=== PATIENT | female | born 1990 | race Caucasian/White ===

== ENCOUNTER 2020-08-22 15:46 | Emergency (ER) | payer OTHER, SELFPAY ==
[2020-08-22 16:08] LABS: Urine Blood Negative (Negative); Urine Glucose Negative (Negative); Urine Protein Negative (Negative); Urine Specific Gravity 1.025 (1.005-1.030)
[2020-08-22 16:31] LABS: Urine Specific Gravity/Preg 1.025 (1.005-1.030)
[2020-08-22 17:13] LABS: BUN Blood Urea Nitrogen 7 mg/dL (7-18); Bicarbonate 23 mmol/L (21-32); Glucose Level 83 mg/dL (74-106); HCG, Quantitative 191 mIU/mL (1-3); Potassium 3.7 mmol/L (3.5-5.1); Sodium Level 139 mmol/L (136-145)
[2020-08-22 17:23] LABS: Absolute Lymphocytes (CBC) 2.4 K/uL (0.7-4.9); Basophils % 1.2 % (0-1.3); Lymphocytes % 32.7 % (15.3-44.8); MPV 9.2 fL (7.6-11.3); RBC Red Blood Cell Count 4.63 M/uL (3.86-4.86)
[2020-08-22 17:23] LABS: Urine Bacteria 20-50 /HPF (<20); Urine Mucus HEAVY /HPF (NONE SEEN); Urine RBC NONE SEEN /HPF (NONE SEEN)
--- NOTE | 2020-08-22 17:53 | ER ---
Nurse's Notes [facility] Name: Marlyn Lopez Age: 30 yrs Sex: Female : 1990 Arrival Date: 08/22/2020 Time: 15:49 Bed 17 Private MD: Diagnosis: state;Urinary tract infection, site not specified Presentation: 08/22 15:55 Chief complaint: Patient states: Intermittent sharp/dull LLQ abdominal pain x 2 days, jl7 denies N/V/D, denies urinary symptoms, reports hx of ovarian cyst on left ovary. Coronavirus screen: Client denies travel out of the [place] in the last 14 days. At this time, the client does not indicate any symptoms associated with coronavirus-19. Ebola Screen: No symptoms or risks identified at this time. Initial Sepsis Screen: Does the patient meet any 2 criteria? No. Patient's initial sepsis screen is negative. Does the patient have a suspected source of infection? No. Patient's initial sepsis screen is negative. Risk Assessment: Do you want to hurt yourself or someone else? Patient reports no desire to harm self or others. Onset of symptoms was August 20, 2020. Care prior to arrival: None. 15:55 Method Of Arrival: Ambulatory [facility] 15:55 Acuity: EDGAR 3 jl7 Triage Assessment: 15:58 General: Appears in no apparent distress. uncomfortable, Behavior is calm, cooperative, jl7 appropriate for age. Pain: Complains of pain in left lower quadrant Pain does not radiate. Pain currently is 2 out of 10 on a pain scale. at worst was 5 out of 10 on a pain scale. Quality of pain is described as dull, sharp, Pain began 2-3 days ago. Is intermittent. 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 - Social history:: Smoking status: Patient reports the use of cigarette tobacco products, smokes one-half pack cigarettes per day. Screenin:00 Abuse screen: Denies threats or abuse. Denies injuries from another. Nutritional bp screening: No deficits noted. Tuberculosis screening: No symptoms or risk factors identified. Fall Risk None identified. Assessment: 16:00 General: SEE TRIAGE NOTE. bp 17:00 Reassessment: Patient appears in no apparent distress at this time. No changes from bp previously documented assessment. Patient and/or family updated on plan of care and expected duration. Pain level reassessed. U/S AT B/S. 17:55 Reassessment: PT D/C HOME AMBULATORY, DX WITH STATE AND UTI. bp Vital Signs: 15:55 BP 111 / 70; Pulse 105; Resp 17 S; Temp 98.3(O); Pulse Ox 100% on R/A; Weight 96.62 kg; jl7 Height 5 ft. 6 in. (167.64 cm); Pain 2/10; 17:00 BP 112 / 67; Pulse 83; Resp 16; Pulse Ox 99% ; bp 17:55 BP 118 / 74; Pulse 84; Resp 16; Pulse Ox 100% ; bp 15:55 Body Mass Index 34.38 (96.62 kg, 167.64 cm) jl7 ED Course: 15:49 Patient arrived in ED. ds1 15:50 Millicent Peraza FNP-C is [facility]. kb 15:50 Eddie Huang MD is Attending Physician. kb 15:57 Triage completed. jl7 15:58 Arm band placed on right wrist. jl7 16:00 Patient has correct armband on for positive identification. Bed in low position. Call bp light in reach. Side rails up X2. Adult w/ patient. 16:03 David Stark, RN is Primary Nurse. bp 16:45 Inserted saline lock: 22 gauge in right antecubital area, using aseptic technique. bp Blood collected. 17:55 No provider procedures requiring assistance completed. IV discontinued, intact, bp bleeding controlled, No redness/swelling at site. Pressure dressing applied. 18:25 US Transvaginal Ob In Process Unspecified. EDMS Administered Medications: No medications were administered Outcome: 17:53 Discharge ordered by . kb 17:55 Discharged to home ambulatory, with family. bp 17:55 Condition: stable 17:55 Discharge instructions given to patient, Instructed on discharge instructions, follow up and referral plans. medication usage, Demonstrated understanding of instructions, follow-up care, medications, Prescriptions given X 1. 18:24 Patient left the ED. jp3 Signatures: Dispatcher [employer] EDMillicent Mcneill, PERICO DAY-Loida Aleman ds1 Andrei Bowman, RN RN jl7 David Stark RN RN bp Syed Baugh jp3
--- NOTE | 2020-08-22 17:53 | EDPHYS ---
Physician Documentation [facility] Name: Marlyn Lopez Age: 30 yrs Sex: Female : 1990 Arrival Date: 08/22/2020 Time: 15:49 Bed 17 Private MD: BERNARDO Physician Eddie Huang HPI: 08/22 16:29 This 30 yrs old Female presents to ER via Ambulatory with complaints of Side kb Pain. 16:29 The patient presents with abdominal pain in the left lower quadrant. Onset: The kb symptoms/episode began/occurred 3 day(s) ago. The symptoms do not radiate. Associated signs and symptoms: none. The symptoms are described as constant. Modifying factors: The symptoms are alleviated by nothing, the symptoms are aggravated by pressure. Severity of pain: At its worst the pain was moderate in the emergency department the pain is unchanged. The patient has experienced similar episodes in the past, a few times. The patient has not recently seen a physician. Pt reports left lower quadrant/pelvic pain that started a few days ago. States the pain is similar to previous ovarian cysts on the same side. 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 - Social history:: Smoking status: Patient reports the use of cigarette tobacco products, smokes one-half pack cigarettes per day. ROS: 16:26 Constitutional: Negative for fever, chills, and weight loss. kb 16:26 Abdomen/GI: Positive for abdominal pain, Negative for nausea, vomiting, and diarrhea. 16:26 All other systems are negative. Exam: 16:26 Constitutional: This is a well developed, well nourished patient who is awake, alert, kb and in no acute distress. Head/Face: Normocephalic, atraumatic. ENT: Moist Mucous membranes Cardiovascular: Regular rate and rhythm with a normal S1 and S2. No gallops, murmurs, or rubs. No pulse deficits. Respiratory: Respirations even and unlabored. No increased work of breathing, no retractions or nasal flaring. Skin: Warm, dry with normal turgor. Normal color. MS/ Extremity: Pulses equal, no cyanosis. Neurovascular intact. Full, normal range of motion. Neuro: Awake and alert, GCS 15, oriented to person, place, time, and situation. Moves all extremities. Normal gait. Psych: Awake, alert, with orientation to person, place and time. Behavior, mood, and affect are within normal limits. 16:26 Abdomen/GI: Inspection: abdomen appears normal, Bowel sounds: normal, in all quadrants, Palpation: soft, in all quadrants, mild abdominal tenderness, in the left lower quadrant. Vital Signs: 15:55 BP 111 / 70; Pulse 105; Resp 17 S; Temp 98.3(O); Pulse Ox 100% on R/A; Weight 96.62 kg; jl7 Height 5 ft. 6 in. (167.64 cm); Pain 2/10; 17:00 BP 112 / 67; Pulse 83; Resp 16; Pulse Ox 99% ; bp 17:55 BP 118 / 74; Pulse 84; Resp 16; Pulse Ox 100% ; bp 15:55 Body Mass Index 34.38 (96.62 kg, 167.64 cm) jl7 MDM: 16:00 [facility]. [facility] 16:26 Data reviewed: vital signs, nurses notes. Data interpreted: Pulse oximetry: on room air kb is 100 %. Interpretation: normal. 17:15 ED course: Pt denies vaginal bleeding/spotting.. kb 17:28 ED course: Educated on test result of positive. Pt did not know. LMP 07/18/20, kb but cycles are not regular. A3. 17:50 Data reviewed: lab test result(s). Counseling: I had a detailed discussion with the patient and/or guardian regarding: the historical points, exam findings, and any diagnostic results supporting the discharge/admit diagnosis, lab results, radiology results, the need for outpatient follow up, an OB/Gyne specialist, to return to the emergency department if symptoms worsen or persist or if there are any questions or concerns that arise at home. 08/22 16:08 Order name: Urine Dipstick-Ancillary; Complete Time: 16:11 EDMS 08/22 16:17 Order name: Quantitative Hcg; Complete Time: 17:14 kb 08/22 16:17 Order name: Abo/rh Typing; Complete Time: 17:52 kb 08/22 16:17 Order name: Basic Metabolic Panel; Complete Time: 17:14 kb 08/22 16:17 Order name: CBC with Diff; Complete Time: 17:24 kb 08/22 16:17 Order name: Urine Microscopic Only; Complete Time: 17:23 kb 08/22 16:00 Order name: Urine Dipstick-Ancillary (obtain specimen); Complete Time: 16:30 kb 08/22 16:00 Order name: Urine Test (obtain specimen); Complete Time: 16:30 kb 08/22 16:17 Order name: IV Saline Lock; Complete Time: 16:45 kb 08/22 16:17 Order name: Labs collected and sent; Complete Time: 16:45 kb 08/22 16:17 Order name: NPO; Complete Time: 16:30 kb 08/22 16:17 Order name: US Transvaginal Ob kb 08/22 16:22 Order name: Urine --Ancillary (enter results); Complete Time: 16:32 eb 08/22 17:25 Order name: Urine Culture EDMS Administered Medications: No medications were administered Disposition: 08/22/20 17:53 Discharged to Home. Impression: state, Urinary tract infection, site not specified. - Condition is Stable. - Discharge Instructions: First Trimester of , [id number], and Urinary Tract Infection. - Prescriptions for Macrobid 100 mg Oral Capsule - take 1 capsule by ORAL route every 12 hours for 5 days; 10 capsule. - Medication Reconciliation Form, Thank You Letter, Antibiotic Education, Prescription Opioid Use form. - Follow up: Emergency Department; When: As needed; Reason: Worsening of condition. Follow up: Private Physician; When: 2 - 3 days; Reason: Recheck today's complaints, Continuance of care, Re-evaluation by your physician. Addendum: 08/24/2020 09:39 Co-signature as Attending Physician, Eddie Huang MD I agree with the assessment and c seo plan of care. Signatures: Dispatcher [employer] EDTN Millicent Peraza, FOUR CORNER STAYER MACHINE OPERATOR-C BARB-Eddie Cid MD MD cha Leal, Jahala, RN RN jl7 Pisarski, Syed jp3 Corrections: (The following items were deleted from the chart) 08/22 18:24 17:53 08/22/2020 17:53 Discharged to Home. Impression: state; Urinary tract jp3 infection, site not specified. Condition is Stable. Forms are Medication Reconciliation Form, Thank You Letter, Antibiotic Education, Prescription Opioid Use. Follow up: Emergency Department; When: As needed; Reason: Worsening of condition. Follow up: Private Physician; When: 2 - 3 days; Reason: Recheck today's complaints, Continuance of care, Re-evaluation by your physician. kb
[2020-08-22 18:32] VITALS: TEMP 98.3
[2020-08-22 18:34] VITALS: BP 118/74; O2SAT 100
--- NOTE | 2020-08-22 18:41 | RAD REPORT ---
EXAM DESCRIPTION: US - Transvaginal OB - 08/22/2020 6:26 pm CLINICAL HISTORY: ABD PAIN COMPARISON: No comparisons FINDINGS: The uterus is normal sized. The endometrium is thickened to 2.7 cm without evidence of IUP . The maternal adnexa and ovaries are within normal limits. Normal Doppler blood flow was demonstrated to both ovaries. IMPRESSION: Thickened endometrial stripe noted (2.7 cm) which may indicate early IUP. No gestational sac seen. Advise correlation with serial HCG levels and follow-up pelvic sonogram in 10-12 days.
== END 2020-08-22 18:24 | disposition home or self-care (01) ==
LOC: ER 15:46
DX: O23.41 Unspecified infection of urinary tract in pregnancy, first trimester (principal); Z3A.00 Weeks of gestation of pregnancy not specified; O99.331 Smoking (tobacco) complicating pregnancy, first trimester; F17.210 Nicotine dependence, cigarettes, uncomplicated
CPT/HCPCS: 36415; 76817; 80048; 81003; 81015; 81025; 84702; 85025; 86900; 86901; 87086; 87088; 99284

== ENCOUNTER 2020-09-03 18:18 | Emergency (ER) | payer OTHER ==
[2020-09-03] MEDS ORDERED: NA CHLORIDE 0.9% 1,000 ML ONE (20:59)
--- NOTE | 2020-09-03 21:05 | ER ---
Nurse's Notes [facility] Name: Marlyn Lopez Age: 30 yrs Sex: Female : 1990 Arrival Date: 09/03/2020 Time: 18:21 Bed 15 Private MD: Diagnosis: Presentation: 09/03 18:26 Chief complaint: Patient states: 1. 6 weeks . Started having spotting for 1 ll1 day. + nausea, no fever. G9, P4. 2. SOB and chest heaviness for 3 days. 3. Upper jaw tooth pain off/on for 1 week. Coronavirus screen: Client denies travel out of the [place] in the last 14 days. At this time, the client does not indicate any symptoms associated with coronavirus-19. Ebola Screen: Patient denies travel to an Ebola-affected area in the 21 days before illness onset. Initial Sepsis Screen: Does the patient meet any 2 criteria? HR > 90 bpm. No. Patient's initial sepsis screen is negative. Does the patient have a suspected source of infection? Yes: Dysuria/Frequency/Urgency/UTI. Risk Assessment: Do you want to hurt yourself or someone else? Patient reports no desire to harm self or others. Onset of symptoms was August 28, 2020. 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 - Social history:: Smoking status: Patient reports the use of cigarette tobacco products, denies chronic smoking, but will smoke occasionally. - Family history:: not pertinent. Vital Signs: 18:26 BP 129 / 82; Pulse 106; Resp 17; Temp 98.7; Pulse Ox 98% ; Weight 99.79 kg; Height 5 ll1 ft. 6 in. (167.64 cm); Pain 9/10; 18:26 Body Mass Index 35.51 (99.79 kg, 167.64 cm) ll1 ED Course: 18:21 Patient arrived in ED. as 18:30 Triage completed. ll1 18:32 Arm band placed on. ll1 20:25 Eddie Huang MD is Attending Physician. daisy 20:27 Soni Wells, RN is Primary Nurse. ea Administered Medications: No medications were administered Outcome: 21:04 Patient left the ED. ea Signatures: Eddie Huang MD MD cha Martinez, Amelia as Antunez, Elena, RN RN Maliha Clark RN RN [facility]
--- NOTE | 2020-09-03 21:05 | EDPHYS ---
Physician Documentation [facility] Name: Marlyn Lopez Age: 30 yrs Sex: Female : 1990 Arrival Date: 09/03/2020 Time: 18:21 Bed 15 Private MD: ED Physician Eddie Huang HPI: 09/03 20:34 This 30 yrs old Female presents to ER via Ambulatory with complaints of daisy Vaginal Bleeding, + Preg <12wks, Chest Pressure. 20:34 The patient presents to the emergency department with vaginal bleeding, that is light. daisy The estimated gestational age is 6 weeks. course: care: none. Previous pregnancies: in previous pregnancies patient has had vaginal delivery. Associated signs and symptoms: The patient has no apparent associated signs or symptoms. 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 - Social history:: Smoking status: Patient reports the use of cigarette tobacco products, denies chronic smoking, but will smoke occasionally. - Family history:: not pertinent. ROS: 20:34 Constitutional: Negative for fever, chills, and weight loss, Eyes: Negative for injury, daisy pain, redness, and discharge, ENT: Negative for injury, pain, and discharge, Neck: Negative for injury, pain, and swelling, Cardiovascular: Negative for chest pain, palpitations, and edema, Respiratory: Negative for shortness of breath, cough, wheezing, and pleuritic chest pain, Abdomen/GI: Negative for abdominal pain, nausea, vomiting, diarrhea, and constipation, Back: Negative for injury and pain, MS/Extremity: Negative for injury and deformity, Skin: Negative for injury, rash, and discoloration, Neuro: Negative for headache, weakness, numbness, tingling, and seizure, Psych: Negative for depression, anxiety, suicide ideation, homicidal ideation, and hallucinations, Allergy/Immunology: Negative for hives, rash, and allergies, Endocrine: Negative for neck swelling, polydipsia, polyuria, polyphagia, and marked weight changes, Hematologic/Lymphatic: Negative for swollen nodes, abnormal bleeding, and unusual bruising. 20:34 : Positive for vaginal bleeding. Exam: 20:34 Constitutional: This is a well developed, well nourished patient who is awake, alert, daisy and in no acute distress. Head/Face: Normocephalic, atraumatic. Eyes: Pupils equal round and reactive to light, extra-ocular motions intact. Lids and lashes normal. Conjunctiva and sclera are non-icteric and not injected. Cornea within normal limits. Periorbital areas with no swelling, redness, or edema. ENT: Nares patent. No nasal discharge, no septal abnormalities noted. Tympanic membranes are normal and external auditory canals are clear. Oropharynx with no redness, swelling, or masses, exudates, or evidence of obstruction, uvula midline. Mucous membranes moist. Neck: Trachea midline, no thyromegaly or masses palpated, and no cervical lymphadenopathy. Supple, full range of motion without nuchal rigidity, or vertebral point tenderness. No Meningismus. Chest/axilla: Normal chest wall appearance and motion. Nontender with no deformity. No lesions are appreciated. Cardiovascular: Regular rate and rhythm with a normal S1 and S2. No gallops, murmurs, or rubs. Normal PMI, no JVD. No pulse deficits. Respiratory: Lungs have equal breath sounds bilaterally, clear to auscultation and percussion. No rales, rhonchi or wheezes noted. No increased work of breathing, no retractions or nasal flaring. Abdomen/GI: Soft, non-tender, with normal bowel sounds. No distension or tympany. No guarding or rebound. No evidence of tenderness throughout. Back: No spinal tenderness. No costovertebral tenderness. Full range of motion. Skin: Warm, dry with normal turgor. Normal color with no rashes, no lesions, and no evidence of cellulitis. MS/ Extremity: Pulses equal, no cyanosis. Neurovascular intact. Full, normal range of motion. Neuro: Awake and alert, GCS 15, oriented to person, place, time, and situation. Cranial nerves II-XII grossly intact. Motor strength 5/5 in all extremities. Sensory grossly intact. Cerebellar exam normal. Normal gait. Psych: Awake, alert, with orientation to person, place and time. Behavior, mood, and affect are within normal limits. 20:34 : CVA tenderness, is absent, Pelvic Exam: is not necessary for this patient. Vital Signs: 18:26 BP 129 / 82; Pulse 106; Resp 17; Temp 98.7; Pulse Ox 98% ; Weight 99.79 kg; Height 5 ll1 ft. 6 in. (167.64 cm); Pain 9/10; 18:26 Body Mass Index 35.51 (99.79 kg, 167.64 cm) ll1 MDM: 20:25 Patient medically screened. [facility] 20:36 Differential diagnosis: threatened Ab, complete Ab, retained Ab. Data interpreted: [facility] admissions manager: not applicable for this patient encounter. rate is 106 beats/min. Counseling: I had a detailed discussion with the patient and/or guardian regarding: the historical points, exam findings, and any diagnostic results supporting the discharge/admit diagnosis, lab results, radiology results, the need for outpatient follow up, for definitive care, an OB/Gyne specialist. 09/03 18:41 Order name: EKG; Complete Time: 18:41 [facility] 09/03 18:41 Order name: EKG - Nurse/Tech; Complete Time: 18:41 [facility] 09/03 20:34 Order name: Urine Test (obtain specimen) [facility] 09/03 20:34 Order name: IV Saline Lock [facility] 09/03 20:34 Order name: Labs collected and sent [facility] 09/03 20:34 Order name: NPO [facility] 09/03 20:34 Order name: Urine Dipstick-Ancillary (obtain specimen) [facility] Administered Medications: No medications were administered Disposition: 09/03/20 21:04 Patient left the facility after being seen by provider. - Patient left due to unknown. Signatures: Dispatcher [employer] Eddie Stevens MD MD cha Calderon, Audri, RN RN aa5 Soni Wells RN RN ea Lewis, Lynsay, RN RN ll1
[2020-09-03 21:09] VITALS: BP 129/82; TEMP 98.7; O2SAT 98
== END 2020-09-03 21:04 | disposition left against medical advice (07) ==
LOC: ER 18:18
DX: O46.91 Antepartum hemorrhage, unspecified, first trimester (principal); O99.331 Smoking (tobacco) complicating pregnancy, first trimester; F17.210 Nicotine dependence, cigarettes, uncomplicated; Z3A.01 Less than 8 weeks gestation of pregnancy; Z91.040 Latex allergy status; Z91.048 Other nonmedicinal substance allergy status
CPT/HCPCS: 93005; 99281; J7030

== ENCOUNTER 2020-09-07 03:42 | Emergency (ER) | payer OTHER ==
--- NOTE | 2020-09-07 04:28 | EDPHYS ---
Physician Documentation [facility] Name: Marlyn Lopez Age: 30 yrs Sex: Female : 1990 Arrival Date: 09/07/2020 Time: 03:54 Bed 15 Private MD: ED Physician Salvador Gonzalez HPI: 09/07 04:21 This 30 yrs old Female presents to ER via Ambulatory with complaints of Mouth pkl Swelling. 04:21 The patient presents with pain, swelling. Onset: The symptoms/episode began/occurred 2 pkl day(s) ago. Patient is 7 weeks . 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 - Social history:: Smoking status: Patient reports the use of cigarette tobacco products, smokes one-half pack cigarettes per day, Patient/guardian denies using alcohol, street drugs. ROS: 04:21 Eyes: Negative for injury, pain, redness, and discharge. pkl 04:21 ENT: Positive for dental pain. 04:21 Neck: Negative for acute changes. 04:21 Cardiovascular: Negative for chest pain. 04:21 Respiratory: Negative for cough, shortness of breath. 04:21 Abdomen/GI: Negative for abdominal pain, nausea, vomiting, and diarrhea. 04:21 Back: Negative for acute changes. 04:21 : Negative for urinary symptoms. 04:21 MS/extremity: Negative for acute changes. 04:21 Skin: Negative for rash. 04:21 Neuro: Negative for altered mental status, loss of consciousness. Exam: 04:21 Head/Face: Normocephalic, atraumatic. Eyes: Pupils equal round and reactive to light, pkl extra-ocular motions intact. Lids and lashes normal. Conjunctiva and sclera are non-icteric and not injected. Cornea within normal limits. Periorbital areas with no swelling, redness, or edema. 04:21 ENT: Dental exam: abscess, specifically in the upper left second molar (#15), gum swelling, that is mild. 04:21 Neck: Exam negative for nuchal rigidity. 04:21 Chest/axilla: Exam negative for acute changes. 04:21 Cardiovascular: Rate: tachycardic, actual rate is 101 bpm, Rhythm: regular. 04:21 Respiratory: the patient does not display signs of respiratory distress, Respirations: normal, Breath sounds: are clear throughout. 04:21 Abdomen/GI: Bowel sounds: normal, Palpation: abdomen is soft and non-tender, in all quadrants. 04:21 Back: Exam negative for acute changes. 04:21 : Exam negative for acute changes. 04:21 Musculoskeletal/extremity: Exam is negative for acute changes. 04:21 Skin: Exam negative for rash. 04:21 Neuro: Orientation: is normal, Mentation: is normal, Cranial nerves: grossly normal, Motor: is normal. Vital Signs: 04:01 BP 128 / 55; Pulse 101; Resp 18 S; Temp 97.9(O); Pulse Ox 100% on R/A; Weight 99.79 kg bb (R); Height 5 ft. 6 in. (167.64 cm) (R); Pain 9/10; 04:01 Body Mass Index 35.51 (99.79 kg, 167.64 cm) bb MDM: 04:08 Patient medically screened. pkl 04:26 Data reviewed: vital signs, nurses notes. pkl Administered Medications: 04:22 Drug: Tylenol 650 mg Route: PO; 04:36 Follow up: Response: No adverse reaction 04:22 Not Given (Patient Refused): Motrin (ibuprofen) 400 mg PO once 04:23 Drug: Augmentin (Amoxicillin-Clavulanate) 875 mg Route: PO; 04:36 Follow up: Response: No adverse reaction Disposition: 09/07/20 04:28 Discharged to Home. Impression: Dental abscess. 1 st Trimester . - Condition is Stable. - Prescriptions for Augmentin 875- 125 mg Oral Tablet - take 1 tablet by ORAL route every 12 hours for 7 days; 14 tablet. - Medication Reconciliation Form, Thank You Letter, Antibiotic Education, Prescription Opioid Use form. - Follow up: Private Physician; When: 1 - 2 days; Reason: Re-evaluation by your physician. - Problem is new. - Symptoms are unchanged. Signatures: Gonzalez, Pin, MD MD pkl Bambi Mcconnell RN RN Tara Gómez RN RN Corrections: (The following items were deleted from the chart) 04:36 04:28 09/07/2020 04:28 Discharged to Home. Impression: Dental abscess. 1 st Trimester wh . Condition is Stable. Forms are Medication Reconciliation Form, Thank You Letter, Antibiotic Education, Prescription Opioid Use. Follow up: Private Physician; When: 1 - 2 days; Reason: Re-evaluation by your physician. Problem is new. Symptoms are unchanged. pkl
--- NOTE | 2020-09-07 04:28 | ER ---
Nurse's Notes [facility] Name: Marlyn Lopez Age: 30 yrs Sex: Female : 1990 Arrival Date: 09/07/2020 Time: 03:54 Bed 15 Private MD: Diagnosis: Dental abscess. 1 st Trimester Presentation: 09/07 04:01 Chief complaint: Patient states: she is having dental pain from her impacted wisdom bb teeth and she has a cyst on her gums she has tried over the counter medication. Coronavirus screen: At this time, the client does not indicate any symptoms associated with coronavirus-19. Ebola Screen: No symptoms or risks identified at this time. Initial Sepsis Screen: Does the patient meet any 2 criteria? No. Patient's initial sepsis screen is negative. Does the patient have a suspected source of infection? No. Patient's initial sepsis screen is negative. Risk Assessment: Do you want to hurt yourself or someone else? Patient reports no desire to harm self or others. Onset of symptoms was September 07, 2020. 04:01 Method Of Arrival: Ambulatory bb 04:01 Acuity: EDGAR 4 bb CLINICAL PSYCHOLOGIST LICENSED: 04:06 LMP 07/21/2020, Verified, EDC 04/27/2021, Gestational age from LMP: 6 weeks 6 bb days Historical: - Allergies: 04:06 Latex, Natural Rubber; bb - Home Meds: 04:06 None [Active]; bb - PMHx: 04:06 Impacted wisdom teeth; bb - PSHx: 04:06 Hip surgery; bb - Immunization history:: Adult Immunizations up to date. - Social history:: Smoking status: Patient reports the use of cigarette tobacco products, smokes one-half pack cigarettes per day, Patient/guardian denies using alcohol, street drugs. Screenin:24 Abuse screen: Denies threats or abuse. Denies injuries from another. Nutritional wh screening: No deficits noted. Tuberculosis screening: No symptoms or risk factors identified. Fall Risk None identified. Assessment: 04:23 General: Appears in no apparent distress. uncomfortable, Behavior is calm, cooperative, wh appropriate for age. Pain: Complains of pain in dental abscess. Neuro: Level of Consciousness is awake, alert, obeys commands, Oriented to person, place, time, situation, Appropriate for age. Cardiovascular: Capillary refill < 3 seconds. Respiratory: Airway is patent Respiratory effort is even, unlabored, Respiratory pattern is regular, symmetrical. GI: Abdomen is non-distended. : No signs and/or symptoms were reported regarding the genitourinary system. EENT: Poor dentition noted. Derm: Skin is intact, is healthy with good turgor, Skin is pink, warm \T\ dry. normal. Musculoskeletal: Circulation, motion, and sensation intact. Vital Signs: 04:01 BP 128 / 55; Pulse 101; Resp 18 S; Temp 97.9(O); Pulse Ox 100% on R/A; Weight 99.79 kg bb (R); Height 5 ft. 6 in. (167.64 cm) (R); Pain 9/10; 04:01 Body Mass Index 35.51 (99.79 kg, 167.64 cm) ED Course: 03:54 Patient arrived in ED. am4 04:04 Tara Gómez, RN is Primary Nurse. 04:05 Triage completed. 04:06 Arm band placed on Patient placed in an exam room, on a stretcher, on pulse oximetry. 04:08 Salvador Gonzalez MD is Attending Physician. pkl 04:24 Patient has correct armband on for positive identification. Bed in low position. Call light in reach. Side rails up X 1. Pulse ox on. NIBP on. 04:24 No provider procedures requiring assistance completed. Patient did not have IV access wh during this emergency room visit. Administered Medications: 04:22 Drug: Tylenol 650 mg Route: PO; 04:36 Follow up: Response: No adverse reaction 04:22 Not Given (Patient Refused): Motrin (ibuprofen) 400 mg PO once 04:23 Drug: Augmentin (Amoxicillin-Clavulanate) 875 mg Route: PO; 04:36 Follow up: Response: No adverse reaction Outcome: 04:28 Discharge ordered by . pkl 04:36 Discharged to home ambulatory. 04:36 Condition: stable 04:36 Discharge instructions given to patient, Instructed on discharge instructions, follow up and referral plans. medication usage, POC Demonstrated understanding of instructions, follow-up care, medications, POC Prescriptions given X 1. 04:36 Patient left the ED. Signatures: Gonzalez, Pin, Bambi Hogue MD, RN RN bb Tara Gómez, RN RN Sharon Mckeon
[2020-09-07] MEDS ORDERED: IBUPROFEN 400 MG TAB ONE (04:39)
[2020-09-07] MEDS ORDERED: AMOX/K CLAV 875 MG TAB ONE (04:39)
[2020-09-07] MEDS ORDERED: ACETAMINOPHEN 325 MG TABLET ONE ×2 (04:39→04:45)
[2020-09-07 04:52] VITALS: BP 128/55; TEMP 97.9; O2SAT 100
[2020-09-07] MEDS ORDERED: NA CHLORIDE 0.9% 250 ML ONE (06:10)
[2020-09-07] MEDS ORDERED: KCL 20 MEQ/100 mL IVPB 20 MEQ/100 ML BAG IV ONE (06:10)
== END 2020-09-07 04:36 | disposition home or self-care (01) ==
LOC: ER 03:42
DX: O99.611 Diseases of the digestive system complicating pregnancy, first trimester (principal); K04.7 Periapical abscess without sinus; O99.331 Smoking (tobacco) complicating pregnancy, first trimester; F17.210 Nicotine dependence, cigarettes, uncomplicated; Z3A.01 Less than 8 weeks gestation of pregnancy; Z91.040 Latex allergy status; Z91.048 Other nonmedicinal substance allergy status
CPT/HCPCS: J3480; J7050; 99283

== ENCOUNTER 2020-11-07 20:45 | Emergency (ER) | payer OTHER ==
--- OUTSIDE RECORDS SUMMARY | 2020-11-07 20:47 | XMS REPORT | Continuity of Care Document ---
:1990 Author Organization [facility] t Address [address] [place] [address] Care Team Providers Name Role Phone Gem Gomez Attending Clinician Problems This patient has no known problems. Allergies, Adverse Reactions, Alerts This patient has no known allergies or adverse reactions. Medications This patient has no known medications. Procedures This patient has no known procedures. Encounters Start End Encounter Admission Attending Care Care Encounter Source Date/Time Date/Time Type Type Clinicians Facility Department ID 2020-09-26 2020-09-26 Emergency Shilpa [facility] [id number] 17:34:00 21:05:00 Griffin Desai [id number] [place] [id number] [place] [id number] Results This patient has no known results.
--- NOTE | 2020-11-07 23:13 | ER ---
Nurse's Notes [facility] Name: Marlyn Lopez Age: 30 yrs Sex: Female : 1990 Arrival Date: 11/07/2020 Time: 20:47 Bed Waiting Private MD: Diagnosis: ED Course: 11/07 20:47 Patient arrived in ED. do 22:45 Patient's name was called from ER lobby. No response. Unable to locate patient. Will lp1 disposition as left without being seen by a provider. Administered Medications: No medications were administered Outcome: 23:12 Patient left the ED. lp1 Signatures: Hetal Rodriguez RN RN lp1 Tiffany Wei do
== END 2020-11-07 23:12 | disposition left against medical advice (07) ==
LOC: ER 20:45
DX: Z02.9 Encounter for administrative examinations, unspecified (principal)